=== PATIENT | female | born 2000 | race Two or more races ===

== ENCOUNTER 2024-04-09 19:55 | Emergency (ER) | payer OTHER ==
[~2024-04-09] VITALS: Ht 162.6 cm; Wt 43.6 kg
[2024-04-09 21:22] LABS: Urine Bacteria MANY /hpf (None Seen); Urine Blood Negative /uL (Negative); Urine Clarity Turbid (Clear); Urine Color Light-Yellow (Yellow); Urine Protein, UAD Negative (Negative); Urine Specific Gravity 1.013 (1.001-1.035); Urine Urobilinogen Normal (Negative); Urine WBC 7 /hpf (0 - 5)
[2024-04-09] MEDS ORDERED: NITR-87 PO (23:40)
[2024-04-09] MEDS ORDERED: ALPR0.25 PO (23:40)
--- NOTE | 2024-04-09 23:45 | ED.PDOC ---
HPI Comments 23-year-old male brought in by EMS. Patient was complaining of chest pain x1 hour. States she was had increasing recent stress. Patient was also been hyperventilating. Does have a history of anxiety. Last panic attack was over a year ago. Patient has been dealing with physical stress as she had appendectomy done last week approximate five days ago. No fever no chills. Nothing makes it better, nothing makes it worse. Chief Complaint: Chest Pain Time Seen by MD: 20:11 Reviewed Notes: Nurses Notes Information Source: Patient Mode of Arrival: EMS Severity: Mild Past Medical History PAST MEDICAL HISTORY: Denies Surgical History: Appendectomy, Denies all surgeries SCOUT EXECUTIVE History: No Pertinent SCOUT EXECUTIVE History Constitutional: denies: chills, diaphoresis, fatigue, fever, malaise, sweats, weakness, others EENTM: denies: blurred vision, double vision, ear bleeding, ear discharge, ear drainage, ear pain, ear ringing, eye pain, eye redness, hearing loss, mouth pain, mouth swelling, nasal discharge, nose bleeding, nose congestion, nose pain, photophobia, tearing, throat pain, throat swelling, voice changes, others Respiratory: denies: cough, hemoptysis, orthopnea, SOB at rest, shortness of breath, SOB with excertion, stridor, wheezing, others Cardiovascular: denies: chest pain, dizzy spells, diaphoresis, Dyspnea on exertion, edema, irregular heart beat, left arm pain, lightheadedness, palpitations, PND, syncope, others Gastrointestinal: denies: abdomen distended, abdominal pain, blood streaked bowels, constipated, diarrhea, dysphagia, difficulty swallowing, hematemesis, melena, nausea, poor appetite, poor fluid intake, rectal bleeding, rectal pain, vomiting, others Genitourinary: denies: abnormal vagina bleeding, burning, dyspareunia, dysuria, flank pain, frequency, hematuria, incontinence, pain, , vagina discharge, urgency, others Neurological: denies: dizziness, fainting, headache, left sided numbness, left sided weakness, numbness, paresthesia, pre-existing deficit, right sided numbness, right sided weakness, seizure, speech problems, tingling, tremors, weakness, others Musculoskeletal: denies: back pain, gout, joint pain, joint swelling, muscle pain, muscle stiffness, neck pain, others Integumetry: denies: bruises, change in color, change in hair/nails, dryness, laceration, lesions, lumps, rash, wounds, others Allergic/Immunocompromised: denies: Difficulty Healing, Frequent Infections, Hives, Itching, others Hematologic/Lymphatic: denies: anemia, blood clots, easy bleeding, easy bruising, swollen glands, others Physical Exam General Appearance: Moderate Distress, Normal HEENT: Normal ENT Inspection, Pharynx Normal, TMs Normal Neck: Full Range of Motion, Non-Tender, Normal, Normal Inspection Respiratory: Chest Non-Tender, Lungs Clear, No Accessory Muscle Use, No Respiratory Distress, Normal Breath Sounds Cardiovascular: No Edema, No JVD, No Murmur, No Gallop, Normal Peripheral Pulses, Regular Rate/Rhythm Breast Exam: Deferred Gastrointestinal: No Organomegaly, Non Tender, No Pulsatile Mass, Normal Bowel Sounds, Soft Genitalia: Deferred Pelvic: Deferred Rectal: Deferred Extremities: No calf tenderness, Normal capillary refill, Normal inspection, Normal range of motion, Non-tender, No pedal edema Musculoskeletal : Apperance: Normal Neurologic: Alert, manager clinical informatics II-XII nml as Tested, No Motor Deficits, Normal Affect, Normal Mood, No Sensory Deficits Cerebellar Function: Normal Reflexes: Normal Skin: Dry, Normal Color, Warm Lymphatic: No Adenopathy Was a procedure done? Was a procedure done?: No CP Differential Dx Differential Diagnosis: Angina, Anxiety / Panic Attack, [place] X-Ray, Labs, Meds, VS Vital Signs Date Time Temp Pulse Resp B/P (MAP) Pulse Ox O2 Delivery O2 Flow Rate FiO2 04/09/24 20:02 113 04/09/24 20:00 98.1 115 18 131/70 (90) 100 Lab Test 04/09/24 21:55 04/09/24 20:59 04/09/24 20:50 Range/Units Troponin I High Sensitivity < 3 L < 3 L </=34 ng/L Urine Color Light-yellow Yellow Urine Clarity Turbid H Clear Urine pH 7.0 5.0-9.0 Urine Specific [place] 1.013 1.001-1.035 Urine Protein Negative Negative Urine Ketones 1+ H Negative Urine Blood Negative Negative /uL Urine Nitrite Negative Negative Urine Bilirubin Negative Negative Urine Urobilinogen Normal Negative mg/dL Urine Leukocyte Esterase 3+ Negative /uL Urine RBC 3 0 - 4 /hpf Urine WBC 7 0 - 5 /hpf Urine Squamous Epithelial Cells Few <5 /hpf Urine Bacteria Many H None Seen /hpf Urine Glucose Normal Normal mg/dL X-Ray, Labs, Meds, VS Comment Imaging: X-rays and CT scans were reviewed and interpreted by this provider, imaging shows no fractures and no pathological disease. Pending radiology review. Laboratory: Labs reviewed and interpreted by this provider. No significant abnormalities noted. Patient has prior medical visits reviewed. Med reconciliation performed Vital signs reviewed Time of 1ST Reevaluation: 23:45 Reevaluation 1ST: Improved Patient Education/Counseling: Diagnosis, Treatment, Need For Follow Up (Patient advised to follow-up in the emergency room in the next 24 to 48 hours if symptoms do not improve. Advised follow-up with PCP in the next 3 to 5 days. Patient verbalized understanding. ) Family Education/Counseling: Diagnosis Departure 1 Departure Time of Disposition: 23:38 Impression: Primary Impression: Urinary tract infection Qualified Codes: N30.00 - Acute cystitis without hematuria Additional Impression: Anxiety attack Disposition: HOME / SELF CARE / HOMELESS Condition: Fair e-Prescriptions Alprazolam (Xanax) 0.25 Mg Tb 1 TAB PO DAILY PRN, #15 TAB Prov: YEIMI PASTOR 04/09/24 Nitrofurantoin Monohydrate Mac (Macrobid) 100 Mg Cap 100 MG PO BID for 5 Days, #10 CAP Prov: YEIMI PASTOR 04/09/24 Discharged With: Self Critical Care Note Critical Care Time?: No Stability Stability form required: No Heart Score Heart Score: Heart Score Response (Comments) Value History Slightly Suspicious 0 EKG Normal 0 Age <45 0 Risk Factors No known risk factors 0 Troponin Normal limit 0 Total 0 YEIMI PASTOR Apr 09, 2024 23:45
[2024-04-10 01:15] VITALS: BP 130/90; PULSE 100; RESP 20; TEMP 98.7; O2SAT 97
[2024-04-10] MEDS ORDERED: ALPRAZolam 0.25 MG TAB PO ONE (01:15)
--- NOTE | 2024-04-10 13:10 | ECG ---
[facility] Test Date: 2024-04-09 Test Time: 20:02:46 Pat Name: PEGGY VALE Department: ed Room: Gender: F [employer] Supervisor: david : [phone] Requested By: RIGO SMITH Order Number: [id number] Reading MD: Measurements Intervals [place] Rate: 113 P: 82 IN: 114 QRS: 92 QRSD: 80 T: 26 QT: 305 QTc: 419 Interpretive Statements Sinus tachycardia Biatrial enlargement Borderline right axis deviation RSR' in V1 or V2, probably normal variant Minimal ST depression, inferior leads Please click the below link to view image of tracing.
== END 2024-04-10 01:22 | disposition home or self-care (01) ==
LOC: ER 19:55 → EDBD 19:55 → ER 04-10 01:22
DX: N39.0 Urinary tract infection, site not specified (principal); F41.1 Generalized anxiety disorder; Z90.49 Acquired absence of other specified parts of digestive tract
CPT/HCPCS: 36415; 81001; 84484; 93005